=== PATIENT | female | born 1995 | race Caucasian/White ===

== ENCOUNTER → 2023-06-21 10:18 | Outpatient (CLI) | payer OTHER, SELFPAY ==
--- NOTE | ~2023-06-21 | US_ITS ---
Pelvic ultrasound. Clinical History: First trimester , inconclusive viability Technique: Realtime transabdominal and transvaginal scanning of the pelvis was performed. Color flow Doppler and Doppler spectral analysis were performed. Findings: The uterus is anteverted, and contains an intrauterine gestation. [place]-rump length of 2.3 cm corresponds to an estimated gestational age of 9 weeks 0 days. heart rate is 179 bpm. The right ovary measures 3.4 x 3.5 x 2.2 cm. No significant right ovarian or adnexal mass is seen. The left ovary is not visualized. No significant left ovarian or adnexal mass is seen. There is no evidence of free fluid in the cul de sac. Impression: Live intrauterine gestation with estimated gestational age of 9 weeks 0 days. heart rate is 179 bpm. Reviewed, dictated and finalized at [facility]. Impression: Live intrauterine gestation with estimated gestational age of 9 weeks 0 days. F etal heart rate is 179 bpm.
== END ==
PROVIDERS: PCP Advanced Practice Midwife; Visit Provider Advanced Practice Midwife
DX: O36.80X0 Pregnancy with inconclusive fetal viability, not applicable or unspecified (principal); Z3A.09 9 weeks gestation of pregnancy
CPT/HCPCS: 76801

== ENCOUNTER → 2023-07-03 10:49 | Outpatient (CLI) | payer OTHER, SELFPAY ==
--- NOTE | ~2023-07-03 | US_ITS ---
Pelvic ultrasound. Clinical History: First trimester , cramping Technique: Realtime transabdominal and transvaginal scanning of the pelvis was performed. Color flow Doppler and Doppler spectral analysis were performed. Findings: The uterus is anteverted, and contains an intrauterine gestation.. Placenta is posteriorly located. [place]-rump length of 4.0 cm corresponds to an estimated gestational age of 11 weeks 0 days. heart rate is 163 bpm. The right ovary measures 3.6 x 2.5 x 3.8 cm. No significant right ovarian or adnexal mass is seen. The left ovary is not visualized. No significant left ovarian or adnexal mass is seen. There is no evidence of free fluid in the cul de sac. Impression: Live intrauterine gestation with estimated gestational age of 11 weeks 0 days. heart rate is 16 3 bpm. Sonographic VENUS is 01/22/2024. Reviewed, dictated and finalized at [facility]. Impression: Live intrauterine gestation with estimated gestational age of 11 weeks 0 days. heart rate is 163 bpm. Sonographic VENUS is 01/22/2024.
== END ==
PROVIDERS: PCP Obstetrics & Gynecology Gynecology; Visit Provider Obstetrics & Gynecology Gynecology
DX: O99.611 Diseases of the digestive system complicating pregnancy, first trimester (principal); Z3A.00 Weeks of gestation of pregnancy not specified
CPT/HCPCS: 76801